=== PATIENT | male | born 1940 | race Caucasian/White ===

== ENCOUNTER → 2017-02-24 | Outpatient (CLI) | payer OTHER ==
--- NOTE | 2017-02-24 15:30 | PCVCIMAG ---
APPROVED REPORT Study performed: 02/24/2017 10:07:43 EXAM: Comprehensive 2D, Doppler, and color-flow Echocardiogram Patient Location: Bedside Status: routine BSA: 2.07 HR: 54 bpmBP: 140/72 mmHg Rhythm: Bradycardia with frequent PACs Other Information Study Quality: Adequate Risk Factors: Cardiac Risk Factors: HTN Indications Dyspnea Aortic Stenosis 2D Dimensions LVEF(%): 65.83 (>50%) IVSd: 14.59 (7-11mm)LVOT Diam: 21.31 (18-24mm) LVDd: 47.01 mm PWd: 10.26 (7-11mm)Ascending Ao: 38.99 (22-36mm) LVDs: 30.00 (25-40mm) Left Atrium: 41.72 (27-40mm) Aortic Root: 38.65 mm LV Single Plane 4CH: 70.93 % LV Single Plane 2CH: 58.73 %[place]'s LVEF: 64.83 % Biplane EF: 66.3 % Volumes Left Atrial Volume (Systole) Single Plane 4CH: 60.92 mLSingle Plane 2CH: 91.45 mL LA ESV Index: 37.00 mL/m2 Aortic Valve AoV Peak Maurice.: 3.66 m/s AO Peak Gr.: 53.56 mmHgLVOT Max P.52 mmHg AO Mean Gr.: 27.33 mmHgLVOT Mean P.65 mmHg AO V2 Mean: 2.40 m/sLVOT Max V: 1.28 m/s AO V2 VTI: 88.59 cmLVOT Mean V: 0.91 m/s SYED (VTI): 1.32 al0STVL V1 VTI: 32.74 cm SYED Vmax: 1.24 cm2 SV (LVOT): 116.68 mL Pulmonary Vein P Vein S: 0.58 m/s P Vein D: 0.68 m/s P Vein S/D Ratio: 0.85 Tricuspid Valve TR Peak Maurice.: 2.49 m/s TR Peak Gr.: 24.77 mmHg Left Ventricle The left ventricle is normal size. There is normal LV segmental wall motion. Mild to moderate concentric left ventricular hypertrophy. Left ventricular systolic function is normal. The left ventricular ejection fraction is within the normal range. LVEF is 55-60%. This study is not technically sufficient to allow evaluation of the LV diastolic function. Right Ventricle The right ventricle is normal size. The right ventricular systolic function is normal. Atria The left atrium size is normal. The right atrium size is normal. Aortic Valve The aortic valve is moderate-severely calcified. The aortic valve is trileaflet. No aortic regurgitation is present. There is moderate valvular aortic stenosis. Calculated aortic valve area is 1.2 cm2 with maximum pressure gradient of 54 mmHg and mean pressure gradient of 27 mmHg. Mitral Valve The mitral valve is normal in structure. Mild mitral regurgitation. No evidence of mitral valve stenosis. Tricuspid Valve The tricuspid valve is normal in structure. Mild tricuspid regurgitation with PAP of 32 mmHg Pulmonic Valve The pulmonary valve is normal in structure. Trace pulmonic regurgitation. Great Vessels The aortic root is normal in size. IVC is normal in size and collapses with >50% inspiration Pericardium There is no pericardial effusion. <Conclusion> The left ventricle is normal size. Mild to moderate concentric left ventricular hypertrophy. LVEF is 55-60%. This study is not technically sufficient to allow evaluation of the LV diastolic function. The right ventricle is normal size. The left atrium size is normal. The aortic valve is moderate-severely calcified. The aortic valve is trileaflet. There is moderate valvular aortic stenosis. Calculated aortic valve area is 1.2 cm2 with maximum pressure gradient of 54 mmHg and mean pressure gradient of 27 mmHg. Mild tricuspid regurgitation with PAP of 32 mmHg There is no pericardial effusion.
--- NOTE | 2017-02-24 15:41 | PCVCIMAG ---
APPROVED REPORT Patient Location: Echo lab Room #: Stress Nurse: Tressa Fernando RN PCP- Felix Ivy MD Treadmill Stress Test Indications- Functional capacity, Moderate Aortic Stenosis, dyspnea, DM The patient exercised according to the [place] protocol for 9:22 mins; achieving a work level of 11.3 METS. The resting heart rate of 62 bpm rex to a maximal heart rate of 141 bpm. This value represents 98% of the maximal, age-predicted heart rate. The resting blood pressure of 140/72 mmHg, rex to a maximum of 182/78 mmHg. The exercise test was stopped due to fatigue and dyspnea. Symptoms- Dyspnea with maximal exertion. Conclusion #1 no production of chest pain or angina #2 no diagnostic EKG changes consistent with ischemia #3 fair exercise tolerance with an appropriate hemodynamic response This treadmill was performed for functional capacity with regards to his moderate aortic valve stenosis. He is stable from my perspective.
== END | disposition home or self-care (01) ==
LOC: PCVCIMAG 09:51
PROVIDERS: ATTEND Internal Medicine Cardiovascular Disease
DX: I08.3 Combined rheumatic disorders of mitral, aortic and tricuspid valves (principal); I10 Essential (primary) hypertension; I49.1 Atrial premature depolarization; E78.00 Pure hypercholesterolemia, unspecified
CPT/HCPCS: 93017; 93306

== ENCOUNTER → 2017-11-02 | Outpatient (CLI) | payer OTHER | END | disposition home or self-care (01) | LOC: PCVCCLINIC 14:15 | DX: I35.0 Nonrheumatic aortic (valve) stenosis (principal); E78.5 Hyperlipidemia, unspecified; I10 Essential (primary) hypertension; I25.10 Atherosclerotic heart disease of native coronary artery without angina pectoris; E11.9 Type 2 diabetes mellitus without complications; R94.31 Abnormal electrocardiogram [ECG] [EKG]; E78.00 Pure hypercholesterolemia, unspecified; Z79.899 Other long term (current) drug therapy | CPT/HCPCS: 80061; 93005; G0463 ==

== ENCOUNTER → 2018-03-01 | Outpatient (CLI) | payer OTHER ==
--- NOTE | 2018-03-01 15:12 | PCVCIMAG ---
APPROVED REPORT Study performed: 03/01/2018 09:51:05 Exam: Stress Echocardiogram Indication: elevated coronary calcium score>400, moderate aortic stenosis, HTN Patient Location: Echo lab Stress Nurse: Paula Valencia RN Status: routine Ht: 5 ft 10 in HR: 65 bpm BP: 116/72 mmHg Rhythm: Bifascicular block with abberancy Procedure The patient underwent an Exercise Stress Test using the [place] Protocol. Blood pressure, heart rate, and EKG were monitored. An Echocardiogram was performed by photovoltaic technician in four stages in quad fashion. At peak stress, four selected images were obtained and placed side by side with resting images for comparison. Stress Test Details Stress Test: Exercise stress testing was performed using a [facility] protocol. HR Resting HR: 65 bpmMax Heart Rate (APMHR): 142 bpm Max HR Achieved: 141 bpmTarget HR (85% APMHR): 120 bpm % of APMHR: 99 Recovery HR: 87 bpm HR response to stress: Normal HR response to stress BP Resting BP: 116/72 mmHg Max BP: 150/70 mmHg Recovery BP: 140/70 mmHg ECG Resting ECG: Bifascicular block with abberancy Stress ECG: Bifascicular block with abberancy ST Change: Nondiagnostic bifascicular block abnormalities Arrhythmia: frequent abberant PVCs Recovery ECG: Bifascicular block with abberancy Recovery Arrhythmia: PVCs Clinical Reason for Termination: Maximal effort Stress Symptoms: Dyspnea Exercise duration: 10 min 1 sec Highest Stage Achieved: Stage 4: 4.2 mph at 16% grade. Exercise capacity: 13.4 METs Overall Exercise Capacity for Age: Excellent Scale: Active Angina Score: None Pre-Stress Echo The resting Echocardiogram showed normal left ventricular contractility with an estimated Ejection Fraction of about >55%. Normal wall motion in all segments on baseline images. Post-Stress Echo The stress Echocardiogram showed normal left ventricular contractility with an estimated Ejection Fraction of about 65%. Normal augmentation of wall motion in all segments on post stress images. Clinical No clinical or ECG evidence for ischemia. Conclusion Clinical Response: Non-ischemic Exercise Capacity: Average Stress ECG Response: Non-ischemic Stress Echo Images: Non-ischemic Moderate aortic stenosis with SYED of 1.3 cm2, peak velocity of 3.7 m/s, mean gradient of 33 mmHg and peak gradient of 54 mmHg. The left ventricle is normal in size and wall thickness in both the rest and stress images. Other Information Study Quality: Adequate <Conclusion> Moderate aortic stenosis with SYED of 1.3 cm2, peak velocity of 3.7 m/s, mean gradient of 33 mmHg and peak gradient of 54 mmHg. The left ventricle is normal in size and wall thickness in both the rest and stress images.
== END | disposition home or self-care (01) ==
LOC: PCVCIMAG 09:58
PROVIDERS: ATTEND Internal Medicine Cardiovascular Disease
DX: I06.0 Rheumatic aortic stenosis (principal); I10 Essential (primary) hypertension; I25.10 Atherosclerotic heart disease of native coronary artery without angina pectoris; E11.9 Type 2 diabetes mellitus without complications
CPT/HCPCS: 93325; 93351

== ENCOUNTER → 2018-12-27 | Outpatient (CLI) | payer OTHER | END | disposition home or self-care (01) | LOC: PCVCCLINIC 14:00 | PROVIDERS: ATTEND Internal Medicine Cardiovascular Disease | DX: I35.0 Nonrheumatic aortic (valve) stenosis (principal); I25.10 Atherosclerotic heart disease of native coronary artery without angina pectoris; I48.92 Unspecified atrial flutter; E78.00 Pure hypercholesterolemia, unspecified; I10 Essential (primary) hypertension; I45.10 Unspecified right bundle-branch block; E11.9 Type 2 diabetes mellitus without complications; R94.31 Abnormal electrocardiogram [ECG] [EKG] | CPT/HCPCS: 36415; 80061; 93005; G0463 ==

== ENCOUNTER → 2019-03-10 | Outpatient (CLI) | payer OTHER | END | disposition home or self-care (01) | LOC: PCVCCLINIC 13:00 | PROVIDERS: ATTEND Internal Medicine Cardiovascular Disease | DX: I25.10 Atherosclerotic heart disease of native coronary artery without angina pectoris (principal); I48.91 Unspecified atrial fibrillation; I10 Essential (primary) hypertension; I45.2 Bifascicular block; I35.0 Nonrheumatic aortic (valve) stenosis; E78.00 Pure hypercholesterolemia, unspecified; E11.9 Type 2 diabetes mellitus without complications; D68.59 Other primary thrombophilia; Z90.49 Acquired absence of other specified parts of digestive tract; Z82.49 Family history of ischemic heart disease and other diseases of the circulatory system; Z79.899 Other long term (current) drug therapy | CPT/HCPCS: 93005; G0463 ==